=== PATIENT | male | born 1995 | race Caucasian/White ===

== ENCOUNTER 2017-09-12 00:26 | Emergency (ER) | payer BC ==
--- NOTE | 2017-09-12 00:45 | Emergency Department Record ---
History of Present Illness - General Chief complaint: Head Injury Stated complaint: KNOCKED OFF BULL Time Seen by Provider: 09/12/17 00:40 Source: Patient Mode of Arrival: Ambulatory Limitations: No limitations Travel/Exposure to [facility] Within 21 Days of Symptoms: No - History of Present Illness Initial comments: 21 yo male presents to ED for evaluation of a head injury after "bucked off a bull while riding". Patient is unsure about LOC, but reports that he felt dizzy following the injury, and slightly dazed. Patient denies neck pain, extremity numbness or tingling, extremity weakness, or any other injury below the neck. Patient denies health problems at his baseline, denies the need for analgesia. MD Complaint: Head injury Onset/Timin -: Hour(s) Mechanism of Injury: Animal related injury, Sports related injury Loss of Consciousness: Unsure Previous Trauma to this Area: Yes Place: Other Radiation: None Severity: Moderate Quality: Aching Consistency: Constant Provoking factors: None known Other Injuries: None Associated Symptoms: Denies other symptoms - Related Data Home Medications Medication Instructions Recorded Confirmed Last Taken No Home Med [NO HOME MEDS] 09/12/17 09/12/17 Unknown Allergies/Adverse reactions: Allergies Allergy/AdvReac Type Severity Reaction Status Date / Time No Known Drug Allergies Allergy Verified 09/12/17 00:40 Review of Systems Constitutional: Denies: Chills, Fever, Malaise, Night sweats Eyes: Denies: Eye discharge, Eye pain ENT: Denies: Congestion, Ear pain, Epistaxis Respiratory: Denies: Cough, Dyspnea Cardiovascular: Denies: Chest pain, Dyspnea on exertion Endocrine: Denies: Fatigue, Heat or cold intolerance Gastrointestinal: Denies: Abdominal pain, Nausea, Vomiting Genitourinary: Denies: Incontinence, Retention Musculoskeletal: Denies: Arthralgia, Back pain, Gout, Joint swelling Skin: Denies: Bruising, Change in color Neurological: Reports: Headache. Denies: Abnormal gait, Confusion, Numbness, Seizure Psychiatric: Denies: Anxiety Hematological/Lymphatic: Denies: Anemia Physical Exam - General General Appearance: Alert, Oriented x3, Cooperative, Mild distress Limitations: No limitations - Head Head exam: Atraumatic, Normocephalic, Normal inspection Head exam detail: negative: Abrasion, Contusion, Lanza's sign, General tenderness, Hematoma, Laceration - Eye Eye exam: Normal appearance. negative: Conjunctival injection, Periorbital swelling, Periorbital tenderness, Scleral icterus - ENT Ear exam: negative: Auricular hematoma, Auricular trauma Nasal Exam: negative: Active bleeding, Discharge, Dried blood, Foreign body Mouth exam: negative: Drooling, Laceration, Muffled voice, Tongue elevation - Neck Neck exam: Normal inspection. negative: Meningismus, Tenderness - Respiratory Respiratory exam: Normal lung sounds bilaterally. negative: Rales, Respiratory distress, Rhonchi, Stridor - Cardiovascular Cardiovascular Exam: Regular rate, Normal rhythm, Normal heart sounds - GI/Abdominal GI/Abdominal exam: Soft. negative: Rebound, Rigid, Tenderness - Rectal Rectal exam: Deferred - exam: Deferred - Extremities Extremities exam: Normal inspection. negative: Calf tenderness, Pedal edema, Tenderness - Back Back exam: Denies: CVA tenderness (R), CVA tenderness (L) - Neurological Neurological exam: Alert, Normal gait, Oriented X3 - Psychiatric Psychiatric exam: Normal affect, Normal mood - Skin Skin exam: Normal color. negative: Abrasion Type of lesion: negative: abrasion Course Vital Signs 09/12/17 00:37 Temperature 98.3 F Pulse Rate [ 69 Pulse Ox Probe] Respiratory 16 Rate Blood Pressure 113/68 [Left Arm] Pulse Ox 100 - Reevaluation(s) Reevaluation #1: 09/12/17 01:44 CT Brain: No acute process retention cyst/polyp left maxillary sinus Patient was updated on CT imaging results, denies the need for analgesia, is AOx3 and appropriate per family members at the bedside. Patient appears stable for discharge at this time. Patient and family members were counseled extensively that he will need to be cleared for return to bull-riding by his PCP due to the possibility of 2nd impact syndrome. Patient and family members verbalize understanding of all instructions. Disposition Disposition: Discharge Clinical Impression: Head injury, acute Qualifiers: Encounter type: initial encounter Qualified Code(s): S09.90XA - Unspecified injury of head, initial encounter Disposition: Home, Self-Care Condition: (2) Stable Instructions: Head Injury (ED) Additional Instructions: Return to ED if your symptoms worsen or if you have any concerns. Follow-up with your family doctor in 3-5 days as directed. Ibuprofen as needed for headache symptoms. Forms: Patient Portal Access Time of Disposition: 00:45 Quality - Quality Measures Quality Measures: N/A - Blood Pressure Screening Does Patient Have Any of the Following: No Blood Pressure Classification: Normal BP Reading Systolic Measurement: 113 Diastolic Measurement: 68 Screening for High Blood Pressure: < Normal BP, F/U Not Required > [[id number]]
--- NOTE | 2017-09-13 07:56 | CT SCAN REPORT ---
EXAM: CT SCAN OF THE HEAD HISTORY: PATIENT HAS A HISTORY OF HEAD INJURY. TECHNIQUE: Serial axial CT scan of the head was performed at 2.5 mm intervals from the base of the skull to the apex without the use of intravenous contrast. No comparison CT's are available. FINDINGS: The ventricles, cisterns, and sulci appear within normal limits for size, shape and attenuation. There is no mass or mass effect. The olson and white differentiation appear within normal limits. There is no CT evidence of intra or extraaxial fluid collection to suggest bleeding. Bone windows demonstrate no CT evidence of a fracture or dislocation of the skull. IMPRESSION: NO CT EVIDENCE OF AN ACUTE INTRACRANIAL PROCESS. JOB NUMBER: [id number] MTDD
== END 2017-09-12 01:49 | disposition home or self-care (01) ==
LOC: ER 00:26
DX: S09.90XA Unspecified injury of head, initial encounter (principal); R42 Dizziness and giddiness; R51 Headache; F17.210 Nicotine dependence, cigarettes, uncomplicated; V80.018A Animal-rider injured by fall from or being thrown from other animal in noncollision accident, initial encounter
CPT/HCPCS: 70450; 99283